=== PATIENT | female | born 1955 | race American Indian/Alaskan Native ===

== ENCOUNTER 2019-01-06 00:56 | Emergency (ER) | payer MEDICAID ==
[~2019-01-06] VITALS: Ht 165.1 cm; Wt 113.4 kg
[2019-01-06 02:04] LABS: BASOPHIL % 1.2 % (0-2); RED CELL DISTRIBUTION WIDTH 13.6 % (11.5-14.5)
[2019-01-06 02:09] LABS: microscopic required? YES; urine erythrocyte NEGATIVE (NEGATIVE)
[2019-01-06 02:10] LABS: CALCIUM 8.6 mg/dL (8.5-10.1); CARBON DIOXIDE 21.1 mmol/L (21-32); POTASSIUM SERUM 4.4 mmol/L (3.5-5.1)
[2019-01-06 02:15] LABS: BILIRUBIN TOTAL 1.89 mg/dL (0.20-1.00); TOTAL PROTEIN, SERUM 7.2 g/dL (6.4-8.2)
[2019-01-06 02:20] LABS: ALBUMIN 2.6 g/dL (3.4-5.0)
[2019-01-06 02:22] LABS: PLATELET COUNT 88 x10^3mcL (130-400)
[2019-01-06 07:02] VITALS: BP 142/76
== END 2019-01-06 07:08 | disposition home or self-care (01) ==
LOC: ED 00:56
PROVIDERS: Emergency Medicine
DX: N39.0 Urinary tract infection, site not specified (principal); Z87.442 Personal history of urinary calculi
CPT/HCPCS: J0696; J2270; J2405; J7060; Q9967

== ENCOUNTER 2019-02-19 20:26 | Emergency (ER) | payer OTHER ==
[~2019-02-19] VITALS: Ht 165.1 cm; Wt 99.8 kg
[2019-02-19 20:32] VITALS: Ht 165.1 cm; Wt 99.8 kg
[2019-02-19 22:28] LABS: BASOPHIL % 1.2 % (0-2); PLATELET COUNT 75 x10^3mcL (130-400); RED CELL DISTRIBUTION WIDTH 15.2 % (11.5-14.5)
[2019-02-19 22:31] LABS: CALCIUM 8.3 mg/dL (8.5-10.1); CARBON DIOXIDE 23.5 mmol/L (21-32); CREATININE SERUM 1.2 mg/dL (0.6-1.0); POTASSIUM SERUM 4.5 mmol/L (3.5-5.1)
[2019-02-19 22:36] LABS: BILIRUBIN TOTAL 1.1 mg/dL (0.20-1.00); TOTAL PROTEIN, SERUM 6.6 g/dL (6.4-8.2)
[2019-02-19 22:37] LABS: ALBUMIN 2.3 g/dL (3.4-5.0)
[2019-02-20 01:50] VITALS: BP 141/57
== END 2019-02-20 01:50 | disposition home or self-care (01) ==
LOC: ED 20:26
PROVIDERS: Emergency Medicine
DX: R60.9 Edema, unspecified (principal); I87.2 Venous insufficiency (chronic) (peripheral); I10 Essential (primary) hypertension
CPT/HCPCS: 36415; 83880; J1885; Q0092